=== PATIENT | female | born 1995 | race Two or more races ===

== ENCOUNTER 2022-01-16 05:10 | Day surgery (SDC) | payer OTHER ==
[~2022-01-16 05:10] MED LIST: PEPCID40 MG PO
[2022-01-16] MEDS ORDERED: MORGIDOX100 MG PO (08:19)
[2022-01-16] MEDS ORDERED: NAPR500T14 PO (08:19)
== END 2022-01-16 14:00 | disposition home or self-care (01) ==
LOC: CIR.AMB 05:10
PROVIDERS: ATTEND Obstetrics & Gynecology
DX: D25.0 Submucous leiomyoma of uterus (principal); N85.00 Endometrial hyperplasia, unspecified; Z20.822 Contact with and (suspected) exposure to COVID-19; Z88.8 Allergy status to other drugs, medicaments and biological substances; Z86.16 Personal history of COVID-19; J45.909 Unspecified asthma, uncomplicated